=== PATIENT | female | born 1985 | race Caucasian/White ===

== ENCOUNTER → 2017-08-13 | Outpatient (CLI) | payer BC ==
[~2017-08-13] MED LIST: EFFEXOR XR150 MG PO; LOPRESSOR25 PO; METFORMIN HCL500 MG PO; TIROSINT100 MCG PO
--- NOTE | ~2017-08-13 | EKG ---
[place] [address] [facility] [place] [address] ELECTROCARDIOGRAM REPORT Name: ALISA GIFFORDLEY Guido Room #: [facility]#: [id number] Admission: 08/13/17 Attend Phys: Francisco Samuels MD, F Discharge: Date of : 81 Report #: [id number] THIS REPORT FOR: //name// [facility] Test Date: 2017-08-13 Test Time: 12:33:18 Pat Name: BONITA GIFFORD Department: Room: Gender: F Supply Chain Tech: Anneliese CARMICHAEL : 1985 Requested By: Francisco Samuels Order Number: [id number] MD: Walter Box Measurements Intervals Vista Rate: 63 P: 41 NE: 150 QRS: 43 QRSD: 109 T: 27 QT: 457 QTc: 468 Interpretive Statements Sinus rhythm Small inferior Q waves No previous ECG available for comparison Electronically Signed On 08-13-2017 15:36:04 CDT by Walter Box [email or web address] <ELECTRONICALLY SIGNED> By: Walter Box MD, [facility] 08/13/17 1536 1233 1233 Walter Box MD, FACC /EPI
== END ==
LOC: RAD 11:30
DX: Z01.818 Encounter for other preprocedural examination (principal)

== ENCOUNTER 2017-08-23 05:39 | Day surgery (SDC) | payer BC ==
[~2017-08-23] VITALS: Ht 172.7 cm; Wt 136.1 kg
--- NOTE | ~2017-08-23 | O ---
[facility] [place] [address] OPERATIVE REPORT Name: BONITA GIFFORD Room #: 150-8 [facility]..#: [id number] Admission: 08/23/17 Attend Phys: Francisco Samuels MD, F Discharge: Date of : 81 Report #: [id number] THIS REPORT FOR: //name// CC: Dilma Samuels DATE OF SERVICE: 08/23/2017 PREOPERATIVE DIAGNOSES: 1. Morbid obesity (body mass index of 45.6). 2. Borderline diabetes mellitus. 3. Hypertension. 4. Gastroesophageal reflux disease. 5. Infertility. POSTOPERATIVE DIAGNOSES: 1. Morbid obesity (body mass index of 45.6). 2. Borderline diabetes mellitus. 3. Hypertension. 4. Gastroesophageal reflux disease. 5. Infertility. PROCEDURE: Laparoscopic sleeve gastrectomy with EGD. ANESTHESIA: General endotracheal anesthesia and local anesthetic. ESTIMATED BLOOD LOSS: 5 mL. SPECIMEN: Lateral stomach. COMPLICATIONS: None appreciated. INDICATIONS FOR PROCEDURE: This is a 31-year-old female patient of Dr. Dilma Garcia who stands 5 feet 9 inches and weighed 300 pounds at her most recent office visit with a BMI of 45.6. Her maximum weight is 316 pounds. She has had difficulty with her weight for most of her life. The most weight she has lost with any weight loss modality including specialized diets and exercises is 40-50 pounds. Any amount of weight she has lost, she has quickly regained plus additional weight after stopping the modality. She has numerous associated comorbid conditions and complaints. She has been cleared from a multidisciplinary standpoint including nutrition, psychology and medically by Dr. Garcia to undergo bariatric surgery. She presents today for laparoscopic sleeve gastrectomy with EGD. OPERATIVE FINDINGS: On EGD, the patient's esophagus was normal down to the GE junction and Z-line measured at 39 cm from the teeth. There was no evidence for [address] [address] OPERATIVE REPORT Name: BONITA GIFFORD Room #: 150-8 [facility]#: [id number] Admission: 08/23/17 Attend Phys: Francisco Samuels MD, F Discharge: Date of : 81 Report #: [id number] hiatal hernia. The stomach and duodenum to the third portion were normal without polyps, masses, diverticula or ulcers. On retroflexion of the scope within the antrum of the stomach, there was no evidence for a hiatal hernia. Laparoscopically, the patient had an enlarged stomach as expected. She had mildly fatty liver without halima steatohepatitis. No other significant intra-abdominal pathology was seen. The gastric sleeve staple line was located 4 cm lateral/proximal to the pylorus, 3 cm lateral to the incisura and 1 cm lateral to the GE junction. There was no evidence for staple line leak. Immediately after applying the 14 mL of Tisseel to the gastric sleeve staple line evenly with the [employer] aerosolizer, the gastroscope was used to gently insufflate carbon dioxide into the gastric sleeve. No air bubbles were seen forming within the Tisseel, indicative of a negative leak test. The excised stomach held 1500 mL of fluid. At the conclusion of the operation, sponge, needle and instrument counts were correct. DESCRIPTION OF PROCEDURE IN DETAIL: After the benefits and risks of the procedure were explained to the patient which include but are not limited to risks of bleeding, infection, postoperative pain, postoperative expectations and risks of DVT and pulmonary embolus, informed consent was obtained. The patient was identified in the preoperative holding area. The patient was given IV antibiotics as documented in the chart in line with SCIP protocol. The patient was then taken to the operating room and was placed in the supine position. The patient was given IV sedation and was intubated without incident. SCDs were placed on the patient's bilateral lower extremities prior to induction of anesthesia. The patient had been placed in the modified low lying dorsal lithotomy position in stirrups on the beanbag. The beanbag and the patient were taped to the bed to secure the patient. A time-out was then performed to correctly identify the patient and procedure. An orogastric tube was placed by anesthesia. A bite block was placed and the fiberoptic EGD scope was passed into the patient's oropharynx, down the esophagus, into the stomach, and into the third portion of the duodenum. Findings are as noted above. The scope was slowly withdrawn into the antrum and the scope was retroflexed. The hiatus was visualized. The scope was then straightened and the end of the gastroscope was placed at the pylorus. The stomach was decompressed with the scope. The patient's abdomen was then prepped and draped in the standard sterile fashion with surgical prep. Local anesthetic was infiltrated into the skin and subcutaneous tissue in the left supraumbilical area where a sharp #15-blade scalpel was used to make a 5-mm incision. The 5-mm Visiport was placed intraperitoneally with the 5-mm 0-degree angled laparoscope. Pneumoperitoneum was then achieved with insufflation of carbon dioxide to 15 mmHg. A 5-mm 30-degree angled laparoscope was then inserted. The 15-mm port was placed in the right supraumbilical area after local anesthetic was infiltrated into the [address] [address] OPERATIVE REPORT Name: BONITA GIFFORD Room #: 150-8 [facility]#: [id number] Admission: 08/23/17 Attend Phys: Francisco Samuels MD, F Discharge: Date of : 81 Report #: [id number] skin and subcutaneous tissue and an appropriately sized incision was made. Two additional 5 mm ports were placed in the left abdomen after local anesthetic was infiltrated and incisions were made. All ports were placed under direct visualization. The patient was then placed in reverse Trendelenburg position. Local anesthetic was infiltrated into the skin and subcutaneous tissue in the subxiphoid area and a 5-mm incision was made through which a 5-mm obturator was passed into the abdominal cavity through the fascia to create a passageway for the Denzel liver retractor. The retractor was placed to retract the liver anteriorly. The retractor was held in place with the [employer] apparatus. All abdominal adhesions were then taken down with blunt dissection, sharp dissection and judicious use of the ultrasonic dissector. The gastrosplenic ligament and short gastric vessels were then divided using the ultrasonic dissector with appropriate traction. Bleeding points were made hemostatic with the ultrasonic dissector. Dissection was carried proximally up to the left marcelina of the diaphragm. The distal end point of dissection was then measured at 4 cm proximal to the pylorus. The short gastric vessels and gastrocolic ligament were dissected to that level. The stomach was then rotated medially to visualize any posterior attachments/adhesions to the stomach. The adhesions were dissected with a combination of sharp dissection and use of the ultrasonic dissector. The endoscope was then slightly withdrawn to place it along the lesser curvature of the stomach. Suction was applied to the orogastric tube which was then removed, leaving the endoscope in place as a 34-Wolof bougie. The gastric sleeve was then created. Two black loads of the powered endoscopic ELIDIA stapler buttressed with Pamela-Strips were used to staple and divide the stomach 4 cm proximal to the pylorus. Additional green loads buttressed with Pamela-strips were used to staple off the remainder of the stomach using the endoscope as the bougie. Care was taken to ensure that greater than 3 cm of space was present between the incisura and the staple line. The stomach was fully transected and placed in the right upper quadrant of the abdomen for later removal. 14 mL of Tisseel was applied to the entire length of the staple line with the [employer] aerosolizer to fully ensure hemostasis. The leak test was performed next. The sleeve was insufflated with the endoscope which was slowly withdrawn. No air bubbles were seen forming in the Tisseel laparoscopically. Endoluminally, no bleeding was seen. The stomach was fully decompressed and the scope was slowly withdrawn. The Denzel liver retractor was then loosened from the [employer] apparatus and it was removed without difficulty. The stomach was then removed from the patient's body through the 15-mm port under direct visualization. A small amount stretching of the fascia was required to create an opening large enough for removal of the stomach. After its removal, the 15-mm port site fascial opening was closed with an 0-PDS suture [address] [address] OPERATIVE REPORT Name: BONITA GIFFORD Room #: 150-8 [facility] M..#: [id number] Admission: 08/23/17 Attend Phys: Francisco Samuels MD, F Discharge: Date of : 81 Report #: [id number] using the Kale-Sb laparoscopic fascial closure device. All ports were removed after the abdominal cavity was desufflated. The fascial suture was tied. Interrupted subcuticular 4-0 Monocryl sutures and Dermabond were used to close all skin incisions. The patient tolerated the procedure well. The patient was awakened, extubated and taken to the recovery room in stable condition with no apparent intraoperative complications. <ELECTRONICALLY SIGNED> By: Francisco Samuels MD, FACS 08/23/17 1312 1150 1207 Francisco Samuels MD, FACS /nt
--- NOTE | ~2017-08-23 | PATH ---
[facility] [address] [place] [address] PATHOLOGY RPT PROCEDURE Name: LILY GIFFORD Room #: [facility]..#: [id number] Admission: 08/23/17 Date of : 81 Discharge: 08/24/17 Report #: [id number] Path Case #: [id number] [facility] Accession Number: [id number] . 01 Material submitted: . LAP SLEEVE GASTRECTOMY . 01 Clinical history: . Morbid obesity . 02 Diagnosis: Stomach, partial stomach, laparoscopic sleeve gastrectomy: - No diagnostic abnormalities identified, history of morbid obesity. (IUV:álvaro; 08/27/2017) QMS/08/27/2017 . 02 Electronically signed: . Melissa Suarez MD, Pathologist NPI- [id number] . 01 Gross description: . The specimen is received in formalin, labeled "Lily Kobi, lap sleeve gastrectomy". Received is a partial gastrectomy specimen with a stapled margin of resection measuring 24.5 x 5.2 x 2.8 cm in greatest dimensions. The serosal surface is pale holland and smooth in appearance. Opening the specimen reveals light holland mucosa with normal mucosal folds. No distinct nodules or lesions are noted grossly. The specimen is submitted representatively in cassette A1. (CAA; 08/24/2017) QAC/QAC . 02 Pathologist provided ICD-10: E66.01 . 02 CPT . 105547 Performed at: [address], [place] [id number] MD John Aguilar MD Phone: [phone] Performed at: [address] [id number] MD Melissa Suarez MD Phone: [phone]
[2017-08-23 09:38] VITALS: BP 115/73
[2017-08-23 09:38] LABS: HEMATOCRIT 40.6 % (37.0-47.0); HEMOGLOBIN 13.6 gm/dL (12.0-15.0)
[2017-08-23 14:22] VITALS: BP 147/85
[2017-08-23 14:44] VITALS: BP 136/73
[2017-08-23 15:37] VITALS: BP 126/77
[2017-08-23 16:35] VITALS: BP 124/74
[2017-08-23 19:45] VITALS: BP 151/83
[2017-08-24 04:25] VITALS: BP 158/91
[2017-08-24 05:49] LABS: ABSOLUTE NEUTROPHILS 12.4 thou/uL (1.4-8.2); BASOPHILS 0.2 % (0.0-2.0); HEMATOCRIT 38.9 % (37.0-47.0); HEMOGLOBIN 12.9 gm/dL (12.0-15.0); LYMPHOCYTES 10.7 % (24.0-44.0); MCH 27.4 pg (26.0-34.0); MCHC 33.3 g/dL (28.0-37.0); MCV 82.3 fL (80.0-100.0); MONOCYTES 7.7 % (1.0-8.0); PLATELET COUNT 292 thou/uL (150-400); POLYS 81.4 % (36.0-66.0); RBC 4.72 mil/uL (4.20-5.00); RDW 15.1 % (10.5-14.5); WBC 15.3 thou/uL (4.0-11.0)
[2017-08-24 05:53] LABS: CALCIUM 8.3 mg/dL (8.5-10.1); POTASSIUM 3.8 mmol/L (3.5-5.1)
[2017-08-24] MEDS ORDERED: HYDROCODONE-ACE15 ML PO (08:05)
[2017-08-24] MEDS ORDERED: ZOFRAN ODT4 MG PO (08:05)
[2017-08-24 08:37] VITALS: BP 155/93
[2017-08-24 16:47] VITALS: BP 155/93
== END 2017-08-24 19:49 | disposition home or self-care (01) ==
LOC: OR 05:39 → TBA 05:39 → OR 12:44 → 4E 14:19 → OR 08-24 19:49
PROVIDERS: Surgery
DX: E66.01 Morbid (severe) obesity due to excess calories (principal); K21.9 Gastro-esophageal reflux disease without esophagitis; I10 Essential (primary) hypertension; E11.9 Type 2 diabetes mellitus without complications; N97.9 Female infertility, unspecified; F32.9 Major depressive disorder, single episode, unspecified; F41.9 Anxiety disorder, unspecified; E03.9 Hypothyroidism, unspecified; Z90.49 Acquired absence of other specified parts of digestive tract; Z68.42 Body mass index [BMI] 45.0-49.9, adult; Z98.890 Other specified postprocedural states; Z79.899 Other long term (current) drug therapy
CPT/HCPCS: 10783; 50010; 50101; 50222; 50249; 50386; 50555; 50739; 50740; 50962; 51436; 51437; 52182; 52265; 53307; 53311; 54022; 54118; 56462; 56525; 56526; 57092; 62110; 62900; 70005